=== PATIENT | male | born 1990 | race Caucasian/White ===

== ENCOUNTER 2019-10-01 11:00 | Emergency (ER) | payer BC ==
--- NOTE | 2019-10-01 11:06 | EDM.PDOC ---
ED HPI GENERAL MEDICAL PROBLEM - General Chief Complaint: Abdominal Pain Stated Complaint: ABDOMINAL PAIN Time Seen by Provider: 10/01/19 11:05 Source of Information: Reports: Patient, RN, RN Notes Reviewed History Limitations: Reports: No Limitations - History of Present Illness INITIAL COMMENTS - FREE TEXT/NARRATIVE: Pt presents to ER with c/o abdominal pain with nausea and vomiting. Pt states the pain began around midnight last night in the epigastric and periumbilical region. The pain has now localized to the RLQ. Pt was seen in the ER at [place] early this morning and diagnosed with constipation. He cannot keep down any food or liquids without vomiting. Denies diarrhea. He doesn't think he has had a fever. No history of abdominal surgeries. Onset: Gradual Duration: Constant, Getting Worse Location: Reports: Abdomen Quality: Reports: Ache Severity: Severe Improves with: Reports: None Worsens with: Reports: Movement Associated Symptoms: Reports: No Other Symptoms - Related Data Allergies Allergy/AdvReac Type Severity Reaction Status Date / Time No Known Allergies Allergy Verified 10/01/19 12:14 Home Meds: Home Meds . [No Known Home Meds] 10/01/19 [History] Past Medical History - Past Health History Medical/Surgical History: Denies Medical/Surgical History Social & Family History - Family History Family Medical History: Noncontributory - Tobacco Use Smoking Status *Q: Never Smoker - Living Situation & Occupation Living situation: Reports: , with Family Occupation: Employed ED ROS GENERAL - Review of Systems Review Of Systems: Comprehensive ROS is negative, except as noted in HPI. ED EXAM, GI/ABD - Physical Exam Exam: See Below Exam Limited By: No Limitations General Appearance: Alert, WD/WN, No Apparent Distress, Active Emesis, Other ( Uncomfortable, but non-toxic appearing.) Eyes: Bilateral: Normal Appearance (No scleral icterus) Nose: Normal Inspection Throat/Mouth: Normal Voice, No Airway Compromise, Other (Dry oral mucosa.) Head: Atraumatic, Normocephalic Neck: Normal Inspection, Supple, Non-Tender, Full Range of Motion Respiratory/Chest: No Respiratory Distress, Lungs Clear, Normal Breath Sounds, No Accessory Muscle Use, Chest Non-Tender Cardiovascular: Regular Rate, Rhythm GI/Abdominal Exam: Normal Bowel Sounds, Soft, No Organomegaly, No Distention, Guarding, Rebound (at RLQ), Tender (RLQ). No: Rigid (Male) Exam: Deferred Rectal (Males) Exam: Deferred Back Exam: Normal Inspection Extremities: Normal Inspection Neurological: Alert, Oriented, Normal Cognition, No Motor/Sensory Deficits Psychiatric: Normal Affect, Normal Mood Skin Exam: Warm, Dry, Intact, Normal Color, No Rash Course - Vital Signs Last Recorded V/S: Last Vital Signs Temp 98.7 F 10/01/19 12:09 Pulse 69 10/01/19 12:09 Resp 16 10/01/19 12:09 BP 111/57 L 10/01/19 12:09 Pulse Ox 96 10/01/19 12:09 - Orders/Labs/Meds Orders: Active Orders 24 hr Category Date Time Status Peripheral IV Care [RC] . DIRECTED Care 10/01/19 11:16 Active Abdomen Pelvis w Cont [CT] Stat Exams 10/01/19 11:28 Taken UA RFX DISHA AND CULT IF INDIC [URIN] Stat Lab 10/01/19 11:45 Ordered Piperacillin/Tazobactam [Zosyn] 3.375 gm Med 10/01/19 12:07 Active Sodium Chloride 0.9% [Normal Saline] 100 ml IV ONETIME Sodium Chloride 0.9% [Normal Saline] 1,000 ml Med 10/01/19 11:17 Active IV .BOLUS Sodium Chloride 0.9% [Saline Flush] Med 10/01/19 11:15 Active 10 ml FLUSH ASDIRECTED PRN Peripheral IV Insertion Adult [OM.PC] Stat Oth 10/01/19 11:15 Ordered Medication Orders Sodium Chloride (Normal Saline) 1,000 mls @ 999 mls/hr IV .BOLUS ONE Stop: 10/01/19 12:17 Last Admin: 10/01/19 11:37 Dose: 999 mls/hr Piperacillin Sod/Tazobactam (Sod 3.375 gm/ Sodium Chloride) 100 mls @ 200 mls/ hr IV ONETIME ONE Stop: 10/01/19 12:36 Sodium Chloride (Saline Flush) 10 ml FLUSH ASDIRECTED PRN PRN Reason: Keep Vein Open Labs: Laboratory Tests 10/01/19 10/01/19 Range/Units 11:26 11:26 WBC 13.1 H (5.0-10.0) 10^3/uL RBC 4.96 (4.6-6.2) 10^6/uL Hgb 15.2 (14.0-18.0) g/dL Hct 43.2 (40.0-54.0) % MCV 87.1 (80-100) fL MCH 30.6 (27.0-34.0) pg MCHC 35.2 H (33.0-35.0) g/dL Plt Count 214 (150-450) 10^3/uL Neut % (Auto) 83.9 H (42.2-75.2) % Lymph % (Auto) 8.2 L (20.5-50.1) % [place] % (Auto) 7.8 (2-8) % Eos % (Auto) 0.0 L (1.0-3.0) % Baso % (Auto) 0.1 (0.0-1.0) % Sodium 139 (136-145) mmol/L Potassium 3.7 (3.5-5.1) mmol/L Chloride 101 (98-107) mmol/L Carbon Dioxide 26 (21-32) mmol/L Anion Gap 15.7 H (7-13) mEq/L BUN 16 (7-18) mg/dL Creatinine 1.05 (0.70-1.30) mg/dL Est Cr Clr Drug Dosing TNP Estimated GFR (MDRD) > 60 BUN/Creatinine Ratio 15.2 (No establ ref range) Glucose 115 H (74-99) mg/dL Calcium 8.8 (8.5-10.1) mg/dL Total Bilirubin 0.9 (0.2-1.0) mg/dL AST 23 (15-37) U/L ALT 30 (16-63) U/L Alkaline Phosphatase 56 (46-116) U/L C-Reactive Protein 1.8 H (0.0-0.9) mg/dL Total Protein 7.9 (6.4-8.2) g/dL Albumin 4.3 (3.4-5.0) g/dL Globulin 3.6 Albumin/Globulin Ratio 1.2 Amylase 55 (25-115) U/L Lipase 89 (73-393) U/L Meds: Medications Generic Name Dose Route Start Last Admin Trade Name Freq PRN Reason Stop Dose Admin Sodium Chloride 1,000 mls @ 999 mls/hr 10/01/19 11:17 10/01/19 11:37 Normal Saline IV 10/01/19 12:17 999 mls/hr .BOLUS ONE Administration Piperacillin Sod/Tazobactam 100 mls @ 200 mls/hr 10/01/19 12:07 Sod 3.375 gm/ Sodium Chloride IV 10/01/19 12:36 ONETIME ONE Sodium Chloride 10 ml 10/01/19 11:15 Saline Flush FLUSH ASDIRECTED PRN Keep Vein Open Discontinued Medications Generic Name Dose Route Start Last Admin Trade Name Freq PRN Reason Stop Dose Admin Hydromorphone HCl 1 mg 10/01/19 11:17 10/01/19 11:35 Dilaudid IVPUSH 10/01/19 11:18 1 mg ONETIME ONE Administration Iopamidol 100 ml 10/01/19 11:28 10/01/19 12:03 Isovue-300 (61%) IVPUSH 10/01/19 11:29 100 ml ONETIME ONE Administration Ondansetron HCl 4 mg 10/01/19 11:17 10/01/19 11:36 Zofran IV 10/01/19 11:18 4 mg ONETIME ONE Administration Departure - Departure Time of Disposition: 12:16 Disposition: DC/Tfer to Acute Hospital 02 Condition: Good, Serious Clinical Impression: Acute appendicitis Qualifiers: Acute appendicitis type: with localized peritonitis Appendicitis gangrene presence: without gangrene Appendicitis perforation presence: without perforation Appendicitis abscess presence: without abscess Qualified Code(s): K35.30 - Acute appendicitis with localized peritonitis, without perforation or gangrene - Discharge Information *PRESCRIPTION DRUG MONITORING PROGRAM REVIEWED*: Not Applicable *COPY OF PRESCRIPTION DRUG MONITORING REPORT IN PATIENT AMA: Not Applicable Forms: ED Department Discharge, Interfacility Transfer [facility] Sepsis Event Note - Focused Exam Vital Signs: Vital Signs Temp Pulse Resp BP Pulse Ox 10/01/19 12:09 98.7 F 69 16 111/57 L 96 10/01/19 11:59 99.1 F 69 18 133/82 100 10/01/19 11:06 99.1 F 69 18 133/82 100 Date Exam was Performed: 10/01/19 Time Exam was Performed: 12:15 - My Orders Last 24 Hours: My Active Orders 10/01/19 11:15 Sodium Chloride 0.9% [Saline Flush] 10 ml FLUSH ASDIRECTED PRN Peripheral IV Insertion Adult [OM.PC] Stat 10/01/19 11:16 Peripheral IV Care [RC] . DIRECTED 10/01/19 11:17 Sodium Chloride 0.9% [Normal Saline] 1,000 ml IV .BOLUS 10/01/19 11:28 Abdomen Pelvis w Cont [CT] Stat 10/01/19 11:45 UA RFX DISHA AND CULT IF INDIC [URIN] Stat 10/01/19 12:07 Piperacillin/Tazobactam [Zosyn] 3.375 gm Sodium Chloride 0.9% [Normal Saline] 100 ml IV ONETIME - Assessment/Plan Last 24 Hours: My Active Orders 10/01/19 11:15 Sodium Chloride 0.9% [Saline Flush] 10 ml FLUSH ASDIRECTED PRN Peripheral IV Insertion Adult [OM.PC] Stat 10/01/19 11:16 Peripheral IV Care [RC] . DIRECTED 10/01/19 11:17 Sodium Chloride 0.9% [Normal Saline] 1,000 ml IV .BOLUS 10/01/19 11:28 Abdomen Pelvis w Cont [CT] Stat 10/01/19 11:45 UA RFX DISHA AND CULT IF INDIC [URIN] Stat 10/01/19 12:07 Piperacillin/Tazobactam [Zosyn] 3.375 gm Sodium Chloride 0.9% [Normal Saline] 100 ml IV ONETIME
[2019-10-01] MEDS ORDERED: Sodium Chloride 0.9% 10 ML Syringe FLUSH PRN (11:15)
[2019-10-01] MEDS ORDERED: Sodium Chloride 0.9% 1,000 ML IV ONE (11:17)
[2019-10-01] MEDS ORDERED: Ondansetron 4 MG/2 ML SDV IV ONE (11:17)
[2019-10-01] MEDS ORDERED: HYDROmorphone 1 MG/ML Syringe IVPUSH ONE (11:17)
[2019-10-01] MEDS ORDERED: Iopamidol 612 MG/ML 100 ML Bottle IVPUSH ONE (11:28)
[2019-10-01 11:53] LABS: ANION GAP 15.7 mEq/L (7-13); CHLORIDE,CL 101 mmol/L (98-107); SODIUM,NA 139 mmol/L (136-145)
[2019-10-01] MEDS ORDERED: Piperacillin/Tazobactam 3.375 GM in Sodium Chloride 0.9% 100 ML IV ONE (12:07)
== END 2019-10-01 12:35 ==
LOC: DL.ED 11:00
DX: K35.30 Acute appendicitis with localized peritonitis, without perforation or gangrene (principal)
CPT/HCPCS: 36415; 74177; 80053; 81003; 82150; 83690; 85025; 86140; 96361; 96365; 96375; 99285; J1170; J2405; J2543; J7030; J7050; Q9967